=== PATIENT | male | born 1940 | race Caucasian/White ===

== ENCOUNTER 2022-03-30 08:00 | Outpatient (CLI) | payer MEDICARE | END 2022-03-30 08:01 | disposition home or self-care (01) | LOC: PET 08:00 | PROVIDERS: ATTEND Internal Medicine Pulmonary Disease | DX: R91.1 Solitary pulmonary nodule (principal); R93.89 Abnormal findings on diagnostic imaging of other specified body structures | CPT/HCPCS: 78815; A9552 ==